=== PATIENT | female | born 1965 | race Caucasian/White ===

== ENCOUNTER 2018-06-17 06:06 | Emergency (ER) | payer OTHER, MEDICAID ==
[~2018-06-17] VITALS: Ht 172.7 cm; Wt 138.5 kg
[~2018-06-17 06:06] MED LIST: BUPR300T3 PO; CARI350T PO; CITA40TA12 PO; CLIN150C14 PO; CLON0.5T PO; DIPH25CA58 PO; FURO-69 PO; GABA600T7 PO; MORP30TA83 PO; NORE5TAB3 PO; OXYC5CAP PO; PANT40TA3 PO; PNV1TABL34 PO; TOPI25TA52 PO
--- NOTE | 2018-06-17 06:28 | PHYS DOC ---
Past History Past Medical History: Anxiety, Depression, Hypertension Past Surgical History: Other Alcohol Use: None Drug Use: None Adult General Chief Complaint Chief Complaint: LOWER EXTREMITY EDEMA HPI HPI Patient is a 52-year-old female who presents with bilateral lower extremity swelling for the past 3-4 days. This causes discomfort in the legs. She notes increased shortness of breath with climbing stairs. Denies any orthopnea, fever , nor chest pain. No relief with elevating the legs. She has a history of this several years ago and ultimately had a procedure for uterine prolapse which was felt to be obstructing venous outflow. This was performed at an outlying facility. While patient was on Lasix previously that never seemed to help this condition. Patient has not seen her primary care physician for this. Nothing seems to make the lower extremity swelling better or worse.[] Review of Systems Review of Systems Constitutional: Denies fever or chills [] Eyes: Denies change in visual acuity, redness, or eye pain [] HENT: Denies nasal congestion or sore throat [] Respiratory: Denies cough or shortness of breath [] Cardiovascular: No chest pain or palpitations[] GI: Denies abdominal pain, nausea, vomiting, bloody stools or diarrhea [] : Denies dysuria or hematuria [] Musculoskeletal: Denies back pain or joint pain, see history of present illness [] Integument: Denies rash or skin lesions [] Neurologic: Denies headache, focal weakness or sensory changes [] Endocrine: Denies polyuria or polydipsia [] All other systems were reviewed and found to be within normal limits, except as documented in this note. Allergies Allergies Allergies Coded Allergies Type Severity Reaction Last Updated Verified NSAIDS (Non-Steroidal Anti-Inflamma Allergy Intermediate HIVES 01/07/15 Yes povidone-iodine Allergy Intermediate HIVES 01/07/15 Yes tramadol Allergy Intermediate HIVES 01/07/15 Yes Physical Exam Physical Exam Constitutional: Well developed, well nourished, no acute distress, non-toxic appearance. [] HENT: Normocephalic, atraumatic, bilateral external ears normal, oropharynx moist, no oral exudates, nose normal. [] Eyes: PERRLA, EOMI, conjunctiva normal, no discharge. [] Neck: Normal range of motion, no tenderness, supple, no stridor. [] Cardiovascular:Heart rate regular rhythm, no murmur [] Lungs & Thorax: Bilateral breath sounds clear to auscultation [] Abdomen: Bowel sounds normal, soft, no tenderness, no masses, no pulsatile masses. Rectal exam performed with emergency management system director shows no external lesions. No hemorrhoids. Brown stool was obtained.[] Skin: Warm, dry, no erythema, no rash. [] Back: No tenderness, no CVA tenderness. [] Extremities: No tenderness, no cyanosis, no clubbing, ROM intact, 2-3+ pretibial edema to the knees bilaterally.[] Neurologic: Alert and oriented X 3, normal motor function, normal sensory function, no focal deficits noted. [] Psychologic: Affect normal, judgement normal, mood normal. [] Current Patient Data Vital Signs Vital Signs Date Time Temp Pulse Resp B/P (MAP) Pulse Ox O2 Delivery O2 Flow Rate FiO2 06/17/18 06:18 97.5 89 20 100 Room Air EKG EKG EKG shows a sinus rhythm at 85 bpm, normal axis, normal QTC at 453 ms, no ST elevations. Interpreted by me at 0651[] Radiology/Procedures Radiology/Procedures Portable chest, 06/17/2018: HISTORY: Lower extremity swelling, shortness of breath The heart size is within normal limits. The pulmonary vascularity is at the upper limits of normal. No pulmonary infiltrate is seen. There is no evidence of pleural fluid. IMPRESSION: No acute cardiopulmonary abnormality is detected.[] Course & Med Decision Making Course & Med Decision Making Pertinent Labs and Imaging studies reviewed. (See chart for details) ED course: Patient arrived, was placed in bed, and tolerated exam well. After the return of the low hemoglobin and hematocrit, rectal exam was performed with emergency management system director, see results above. Patient was additionally given medication for pain. With the anemia, she is noted to be Hemoccult positive. IV proton pump inhibitors were administered. Discussed her care with Dr. Emmanuel who will admit her at [facility]. Medical decision making, differential diagnoses evaluated for include DVT, CHF, cardiac dysrhythmia, anemia. Was found that she was anemic which is new compared to her previous baseline[] Dragon Disclaimer Dragon Disclaimer This electronic medical record was generated, in whole or in part, using a voice recognition dictation system. Departure Departure: Impression: Primary Impression: Peripheral edema Additional Impression: Anemia Disposition: 05 TRANSFER OTHER Admitting Physician: Beto Emmanuel Referrals: DARIUSZ HAQUE MD (PCP) Problem Qualifiers Additional Impression: Anemia Anemia type: unspecified type Qualified Codes: D64.9 - Anemia, unspecified CRISTAL ORTIZ DO Jun 17, 2018 06:28
[2018-06-17 06:44] LABS: BASO % 1 % (0-3); EOS # 0.1 x10^3/uL (0.0-0.7); EOS % 2 % (0-3); HEMATOCRIT 22.4 % (36.0-47.0); LYMPH # 1.2 x10^3/uL (1.0-4.8); LYMPH % 31 % (24-48); MEAN CORPUSCULAR HEMOGLOBIN 21 pg (25-35); MEAN CORPUSCULAR HGB CONC 30 g/dL (31-37); MEAN CORPUSCULAR VOLUME 69 fL (79-100); MONO # 0.3 x10^3/uL (0.0-1.1); MONO % 8 % (0-9); NEUT # 2.2 x10^3uL (1.8-7.7); NEUT % 58 % (31-73); PLATELET COUNT 182 x10^3/uL (140-400); RED BLOOD COUNT 3.25 x10^6/uL (3.50-5.40); RED CELL DISTRIBUTION WIDTH 17.6 % (11.5-14.5); WHITE BLOOD COUNT 3.8 x10^3/uL (4.0-11.0)
[2018-06-17 06:52] LABS: HEMOGLOBIN 6.7 g/dL (12.0-15.5)
[2018-06-17 07:02] LABS: ALBUMIN 3.5 g/dL (3.4-5.0); ALBUMIN/GLOBULIN RATIO 1.1 (1.0-1.7); CALCIUM 8.5 mg/dL (8.5-10.1); CREATININE 0.9 mg/dL (0.6-1.0); POTASSIUM 3.9 mmol/L (3.5-5.1); TOTAL BILIRUBIN 0.5 mg/dL (0.2-1.0); TOTAL PROTEIN 6.8 g/dL (6.4-8.2)
--- NOTE | 2018-06-17 07:38 | RAD ---
Portable chest, 06/17/2018: HISTORY: Lower extremity swelling, shortness of breath The heart size is within normal limits. The pulmonary vascularity is at the upper limits of normal. No pulmonary infiltrate is seen. There is no evidence of pleural fluid. IMPRESSION: No acute cardiopulmonary abnormality is detected. Electronically signed by: Robles Rudd MD (06/17/2018 7:35 AM) [facility]
[2018-06-17] MEDS ORDERED: HYDROcodone/APAP 5/325MG 1 TAB TABLET PO ONE (07:45)
[2018-06-17 08:09] LABS: PLT ESTIMATE ADEQUATE (ADEQUATE); POLYCHROMASIA PRESENT
[2018-06-17 08:10] LABS: ANISOCYTOSIS MOD; HYPOCHROMIA MOD; MICROCYTOSIS MOD; OVALOCYTES FEW; POIKILOCYTOSIS MOD; TEAR DROP CELLS OCC
[2018-06-17 08:23] LABS: FECAL OB PT POSITIVE (NEG)
--- NOTE | 2018-06-17 08:25 | RAD ---
Bilateral lower extremity venous Doppler ultrasound History: Bilateral leg swelling. Comparison: None. Procedure: Color flow Doppler, Doppler spectral analysis, and 2D images are obtained with and without compression in the area of the common femoral vein, superficial femoral vein - femoral vein junction, main femoral vein (superficial femoral vein) and popliteal vein. Veins of the proximal calf are also imaged. Findings: There is normal color flow, augmentation, and compressibility of all visualized vein segments. No evidence of deep venous thrombus is present. IMPRESSION: No evidence of right or left lower extremity deep venous thrombosis. Electronically signed by: Asa Gordon MD (06/17/2018 8:22 AM) [id number]
[2018-06-17] MEDS ORDERED: PANTOPRAZOLE IV 40 MG VIAL. ONE (08:38)
[2018-06-17] MEDS ORDERED: PROCHLORPERAZINE 10 MG/2 ML VIAL. ONE (08:38)
[2018-06-17] MEDS ORDERED: PANTOPRAZOLE IV 40 MG VIAL. IVP ONE (08:45)
[2018-06-17] MEDS ORDERED: PROCHLORPERAZINE 10 MG/2 ML VIAL. IV ONE (08:45)
--- NOTE | 2018-06-17 09:18 | EKG ---
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
[2018-06-17 09:45] VITALS: BP 122/57
== END 2018-06-17 09:45 | disposition short-term general hospital (02) ==
LOC: ER 06:06
DX: R60.0 Localized edema (principal); D64.9 Anemia, unspecified; F41.9 Anxiety disorder, unspecified; F32.9 Major depressive disorder, single episode, unspecified; I10 Essential (primary) hypertension; Z88.6 Allergy status to analgesic agent; Z88.8 Allergy status to other drugs, medicaments and biological substances
CPT/HCPCS: 36415; 71045; 80053; 82274; 83880; 84484; 85025; 85610; 93005; 93970; 96374; 96375; 99285; C9113; J0780

== ENCOUNTER 2018-09-07 15:42 | Emergency (ER) | payer OTHER, MEDICAID ==
[~2018-09-07] VITALS: Ht 172.7 cm; Wt 138.5 kg
[2018-09-07 16:07] VITALS: BP 129/90
[2018-09-07] MEDS ORDERED: CEPHALEXIN 250 MG CAPSULE PO ONE (16:15)
[2018-09-07] MEDS ORDERED: CEPH-264 PO (16:16)
--- NOTE | 2018-09-07 16:17 | PHYS DOC ---
Past History Past Medical History: Anxiety, Depression, Hypertension Past Surgical History: Other Alcohol Use: None Drug Use: None Adult General Chief Complaint Chief Complaint: LOWER EXT PAIN HPI HPI 52-year-old female presents with swelling and pain and redness to her left lower stomach. She states she was shaving her legs last night and cut her leg. She states throughout the day today the tissue surrounding the abrasion has become larger and bright red. She denies any fever chills or sweats. She states she has never had MRSA before.[] Review of Systems Review of Systems Constitutional: Denies fever or chills [] Eyes: Denies change in visual acuity, redness, or eye pain [] HENT: Denies nasal congestion or sore throat [] Respiratory: Denies cough or shortness of breath [] Cardiovascular: No additional information not addressed in HPI [] GI: Denies abdominal pain, nausea, vomiting, bloody stools or diarrhea [] : Denies dysuria or hematuria [] Musculoskeletal: Chronic lower extremity swelling[] Integument: Per history of present illness[] Neurologic: Denies headache, focal weakness or sensory changes [] Endocrine: Denies polyuria or polydipsia [] All other systems were reviewed and found to be within normal limits, except as documented in this note. Allergies Allergies Allergies Coded Allergies Type Severity Reaction Last Updated Verified NSAIDS (Non-Steroidal Anti-Inflamma Allergy Intermediate HIVES 01/07/15 Yes povidone-iodine Allergy Intermediate HIVES 01/07/15 Yes tramadol [facility] 01/07/15 Yes Physical Exam Physical Exam Constitutional: Well developed, well nourished, mild distress, non-toxic appearance. [] HENT: Normocephalic, atraumatic, bilateral external ears normal, oropharynx moist, no oral exudates, nose normal. [] Eyes: PERRLA, EOMI, conjunctiva normal, no discharge. [] Neck: Normal range of motion, no tenderness, supple, no stridor. [] Cardiovascular:Heart rate regular rhythm, no murmur [] Lungs & Thorax: Bilateral breath sounds clear to auscultation [] Abdomen: Bowel sounds normal, soft, no tenderness, no masses, no pulsatile masses. [] Skin: Warm, dry, no erythema, no rash. [] Back: No tenderness, no CVA tenderness. [] Extremities: She has significant left lower extremity cellulitis it appears most erythematous around the recent abrasion but it extends out proximally 5 cm lateral medial superior and inferior. [] Neurologic: Alert and oriented X 3, normal motor function, normal sensory function, no focal deficits noted. [] Psychologic: Affect normal, judgement normal, mood normal. [] EKG EKG [] Radiology/Procedures Radiology/Procedures [] Course & Med Decision Making Course & Med Decision Making Pertinent Labs and Imaging studies reviewed. (See chart for details) [] Dragon Disclaimer Dragon Disclaimer This electronic medical record was generated, in whole or in part, using a voice recognition dictation system. Departure Departure: Impression: Primary Impression: Cellulitis Referrals: DARIUSZ HAQUE MD (PCP) Patient Instructions: Cellulitis Additional Instructions: Return to the emergency department with any new or concerning symptoms Scripts Cephalexin (KEFLEX) 500 Mg Capsule 1 CAP PO TID for cellulitis, #30 CAP Prov: KELTON LUGO DO 09/07/18 Problem Qualifiers Primary Impression: Cellulitis Site of cellulitis: extremity Site of cellulitis of extremity: lower extremity Laterality: left Qualified Codes: L03.116 - Cellulitis of left lower limb KELTON LUGO DO Sep 07, 2018 16:17
== END 2018-09-07 16:24 | disposition home or self-care (01) ==
LOC: ER 15:42
DX: S80.812A Abrasion, left lower leg, initial encounter (principal); L03.116 Cellulitis of left lower limb; F41.9 Anxiety disorder, unspecified; F32.9 Major depressive disorder, single episode, unspecified; I10 Essential (primary) hypertension; Z88.6 Allergy status to analgesic agent; Z88.8 Allergy status to other drugs, medicaments and biological substances; W45.8XXA Other foreign body or object entering through skin, initial encounter; Y93.89 Activity, other specified; Y92.89 Other specified places as the place of occurrence of the external cause; Y99.8 Other external cause status
CPT/HCPCS: 99283

== ENCOUNTER 2018-09-17 13:57 | Inpatient (IN) | payer OTHER, MEDICAID ==
[~2018-09-17] VITALS: Ht 172.7 cm; Wt 135.2 kg
[~2018-09-17 13:57] MED LIST changes: +CEPH-264 PO
[2018-09-17] MEDS ORDERED: IV NORMAL SALINE 1,000ML 1,000 ML IV ONE (14:30)
[2018-09-17] MEDS ORDERED: ONDANSETRON PF 4 MG/2 ML VIAL. IV ONE (14:30)
[2018-09-17] MEDS ORDERED: HYDROmorphone PF 1 MG/ML DISP.SYRIN IV ONE (14:30)
--- NOTE | 2018-09-17 14:48 | PHYS DOC ---
Past History Past Medical History: Anemia, Anxiety, Depression, GERD, Other Past Surgical History: Hysterectomy, Knee Replacement, Other Alcohol Use: None Drug Use: None Adult General Chief Complaint Chief Complaint: LOWER EXT PAIN HPI HPI 52-year-old female presents with bilateral lower extremity pain. The patient was seen about a week ago while my colleague for abdominal skin cellulitis and for bilateral lower extremity cellulitis. She took all of her prescribed Keflex. She presents today because the abdomen has improved, but the bilateral lower legs have not. They continued to be more red, hot, and painful. The patient denies a fever at home. She has no new areas of concern. She admits to using inexpensive razors and causing several small cuts on both legs. She has a history of MRSA in the past. Review of Systems Review of Systems Constitutional: Denies fever or chills [] Eyes: Denies change in visual acuity, redness, or eye pain [] HENT: Denies nasal congestion or sore throat [] Respiratory: Denies cough or shortness of breath [] Cardiovascular: No additional information not addressed in HPI [] GI: Denies abdominal pain, nausea, vomiting, bloody stools or diarrhea [] : Denies dysuria or hematuria [] Musculoskeletal: Denies back pain or joint pain [] Integument: Small razor cuts on bilateral lower extremities, cellulitis[] Neurologic: Denies headache, focal weakness or sensory changes [] Endocrine: Denies polyuria or polydipsia [] All other systems were reviewed and found to be within normal limits, except as documented in this note. Current Medications Current Medications Current Medications Medications (Trade) Dose Ordered Sig/Óscar Start Time Stop Time Status Last Admin Dose Admin Hydromorphone HCl (Dilaudid) 1 mg 1X ONCE 09/17/18 14:30 09/17/18 14:36 DC Ondansetron HCl (Zofran) 4 mg 1X ONCE 09/17/18 14:30 09/17/18 14:36 DC Sodium Chloride 1,000 ml @ 1,000 mls/hr 1X ONCE 09/17/18 14:30 09/17/18 15:29 Allergies Allergies Allergies Coded Allergies Type Severity Reaction Last Updated Verified NSAIDS (Non-Steroidal Anti-Inflamma Allergy Intermediate HIVES 01/07/15 Yes povidone-iodine Allergy Intermediate HIVES 01/07/15 Yes tramadol Allergy Intermediate HIVES 01/07/15 Yes Physical Exam Physical Exam Constitutional: Well developed, well nourished, no acute distress, non-toxic appearance. [] HENT: Normocephalic, atraumatic, bilateral external ears normal, oropharynx moist, no oral exudates, nose normal. [] Eyes: PERRLA, EOMI, conjunctiva normal, no discharge. [] Neck: Normal range of motion, no tenderness, supple, no stridor. [] Cardiovascular:Heart rate regular rhythm, no murmur [] Lungs & Thorax: Bilateral breath sounds clear to auscultation [] Abdomen: Bowel sounds normal, soft, no tenderness, no masses, no pulsatile masses. [] Skin: Bilateral lower extremity with erythema, warmth, consistent with cellulitis.[] Back: No tenderness, no CVA tenderness. [] Extremities: No tenderness, no cyanosis, no clubbing, ROM intact, 4+ pitting edema lower legs. [] Neurologic: Alert and oriented X 3, normal motor function, normal sensory function, no focal deficits noted. [] Psychologic: Affect normal, judgement normal, mood normal. [] Current Patient Data Vital Signs Vital Signs Date Time Temp Pulse Resp B/P (MAP) Pulse Ox O2 Delivery O2 Flow Rate FiO2 09/17/18 14:21 98.7 85 20 98 EKG EKG [] Radiology/Procedures Radiology/Procedures [] Course & Med Decision Making Course & Med Decision Making Pertinent Labs and Imaging studies reviewed. (See chart for details) The patient has an obvious cellulitis of the bilateral lower extremities. We will give her vancomycin by IV. I discussed the patient with Dr. Emmanuel and he has accepted the patient for admission. The patient does not meet sepsis criteria. [] Dragon Disclaimer Dragon Disclaimer This electronic medical record was generated, in whole or in part, using a voice recognition dictation system. Departure Departure: Impression: Primary Impression: Cellulitis Additional Impression: Cellulitis of right lower extremity Disposition: ADMITTED INPATIENT Admitting Physician: Beto Emmanuel Condition: STABLE Referrals: DARIUSZ HAQUE MD (PCP) Problem Qualifiers Primary Impression: Cellulitis Site of cellulitis: extremity Site of cellulitis of extremity: lower extremity Laterality: right Qualified Codes: L03.115 - Cellulitis of right lower limb ESTUARDO SEVILLA DO Sep 17, 2018 14:48
[2018-09-17 15:10] LABS: BASO % 1 % (0-3); EOS # 0.2 x10^3/uL (0.0-0.7); EOS % 4 % (0-3); HEMOGLOBIN 13.1 g/dL (12.0-15.5); LYMPH # 1.6 x10^3/uL (1.0-4.8); LYMPH % 36 % (24-48); MEAN CORPUSCULAR HEMOGLOBIN 30 pg (25-35); MEAN CORPUSCULAR HGB CONC 34 g/dL (31-37); MEAN CORPUSCULAR VOLUME 88 fL (79-100); MONO # 0.3 x10^3/uL (0.0-1.1); MONO % 8 % (0-9); NEUT # 2.3 x10^3uL (1.8-7.7); NEUT % 52 % (31-73); PLATELET COUNT 187 x10^3/uL (140-400); RED BLOOD COUNT 4.44 x10^6/uL (3.50-5.40); RED CELL DISTRIBUTION WIDTH 14.1 % (11.5-14.5); WHITE BLOOD COUNT 4.4 x10^3/uL (4.0-11.0)
[2018-09-17 15:28] LABS: ALBUMIN 3.5 g/dL (3.4-5.0); ALBUMIN/GLOBULIN RATIO 0.9 (1.0-1.7); CALCIUM 9.3 mg/dL (8.5-10.1); CREATININE 0.8 mg/dL (0.6-1.0); GFR 75.6; POTASSIUM 3.9 mmol/L (3.5-5.1); TOTAL BILIRUBIN 0.4 mg/dL (0.2-1.0); TOTAL PROTEIN 7.2 g/dL (6.4-8.2)
[2018-09-17] MEDS ORDERED: VANCOMYCIN IV ONE (15:30)
[2018-09-17] MEDS ORDERED: NORMAL SALINE IV ONE (15:30)
[2018-09-17] MEDS ORDERED: VANCOMYCIN 2 GM in IV NORMAL SALINE 500ML 500 ML IV ONE (16:00)
[2018-09-17] MEDS ORDERED: ONDANSETRON PF 4 MG/2 ML VIAL. IV PRN (16:15)
[2018-09-17] MEDS: VANCOMYCIN PER PHARMACY MC PRN (16:52)
--- NOTE | 2018-09-17 16:53 | NUR ---
Pharmacy Vancomycin Dosing Note S:Consulted to monitor and dose vancomycin started . O:VERONIQUEISABELLECINDY is a 52 year old F with Cellulitis, . Height: 5 feet, 4 inches Weight: 136.945820 kg [place] Body Weight: Adjusted Body Weight: Dosing Weight: Actual Other Antibiotics: LABS: Last BUN: 12 Last Creatinine: 0.8 Creatinine Clearance: Last WBC: 4.4 Last Procalcitonin: Tmax (past 24 hours): Microbiology: I/O: Drug Levels: Last level: on at Last dose given 09/17/18 at 1700 Vancomycin Dosing: Loading Dose: 2000 mg x1 Dosing Weight: Actual Target Trough: 10-20 A: Based on: P: 1. Begin Vancomycin 2000 mg IV q12h 2. Follow up Trough level on 09/19/18 at 0430 3. Pharmacy will continue to monitor, follow and adjust therapy as needed. VINNIE FLYNN RP, 09/17/18 [id number]
[2018-09-17 16:55] VITALS: BP 148/78
[2018-09-17] MEDS ORDERED: HYDR-2769 PO (17:06)
[2018-09-17] MEDS ORDERED: FERR325T14 PO (17:06)
[2018-09-17] MEDS ORDERED: CITA20TA6 PO (17:06)
[2018-09-17] MEDS ORDERED: CYCL1DRO EACHEYE (17:06)
[2018-09-17] MEDS ORDERED: GABA300C8 PO (17:06)
[2018-09-17] MEDS ORDERED: ASCO500T2 PO (17:06)
[2018-09-17] MEDS ORDERED: DEXL30CA PO (17:06)
--- NOTE | 2018-09-17 17:32 | NUR ---
PATIENT CINDY GOULD ADMITTED FROM ED FOR CELLULITIS. PT IS ALERT AND ORIENTED X3. COMPLAINTS OF LE PAIN. ORIENTED TO ROOM. EDUCATION ABOUT DIAGNOSIS PROVIDED. WCTM.
[2018-09-17] MEDS ORDERED: clonazePAM 1 MG TABLET PO ONE (17:45)
[2018-09-17] MEDS ORDERED: BENZOCAINE 20% ORAL GEL 11.9GM TUBE. TP PRN (18:30)
[2018-09-17 19:15] VITALS: BP 136/81
[2018-09-17] MEDS: HYDROmorphone PF 1 MG/ML DISP.SYRIN IV PRN (19:38)
[2018-09-17] MEDS: cycloSPORINE 0.05% OPTH 1 DROP DROPERETTE OU SCH (20:33)
[2018-09-17] MEDS: GABAPENTIN 300 MG CAPSULE. PO SCH (20:33)
[2018-09-17] MEDS: diphenhydrAMINE HCL 25 MG CAPSULE PO PRN (20:33)
[2018-09-17] MEDS: clonazePAM 0.5 MG TABLET PO SCH (20:33)
[2018-09-18] MEDS: HYDROmorphone PF 1 MG/ML DISP.SYRIN IV PRN ×4 (00:03→13:20)
[2018-09-18] MEDS: VANCOMYCIN 2 GM in IV NORMAL SALINE 500ML 500 ML IV SCH ×2 (04:56→16:44)
[2018-09-18 05:19] VITALS: BP 124/87
[2018-09-18] MEDS: CITALOPRAM 20 MG TABLET. PO SCH (08:19)
[2018-09-18] MEDS: ASCORBIC ACID 500 MG TABLET PO SCH (08:19)
[2018-09-18] MEDS: GABAPENTIN 300 MG CAPSULE. PO SCH ×3 (08:19→20:17)
[2018-09-18] MEDS: FERROUS SULFATE 325 MG TABLET. PO SCH (08:19)
[2018-09-18] MEDS: clonazePAM 0.5 MG TABLET PO SCH ×2 (08:19→20:17)
[2018-09-18] MEDS: cycloSPORINE 0.05% OPTH 1 DROP DROPERETTE OU SCH ×2 (08:20→18:05)
[2018-09-18] MEDS: PANTOPRAZOLE 40 MG TABLET. PO SCH (08:21)
--- NOTE | 2018-09-18 13:55 | HP ---
ADMIT DATE: 09/17/2018 HISTORY OF PRESENT ILLNESS: The patient is a 52-year-old female patient who came to the Emergency Room complaining of bilateral lower extremity pain. She was seen about a week ago at the same Emergency Room with abdominal skin cellulitis and bilateral lower extremity cellulitis. She apparently completed all antibiotic that was prescribed in the form of Keflex. Apparently, the abdominal wall cellulitis resolved. However, she presented because the abdomen has improved but the bilateral lower legs have not and continues to be red, hot and painful. She said that she used cheap razor to shave her hair and probably has sustained some cuts to her skin that might have been the reason for her infection which is quite possible. She does have a history of MRSA in the past. She was evaluated in the Emergency Room and was admitted with bilateral lower extremity cellulitis and was started on IV vancomycin with the dose adjusted by the pharmacy. PAST MEDICAL HISTORY: Significant for osteoarthritis. She had a prolapsed uterus and she has also chronic back pain and she was diagnosed with severe iron deficiency anemia, was given Venofer and also was discharged home to continue on oral ferrous sulfate and ascorbic acid. She has had severe iron deficiency anemia and chronic heart pain and actually underwent a colonoscopy with biopsies and esophagogastroduodenoscopy and she was found to have grade A reflux and severe antral erosion. Antral biopsies were taken and normal at the third portion of the duodenum. PAST SURGICAL HISTORY: Significant for left total knee arthroplasty, multiple back surgeries, hysterectomy and bilateral salpingo-oophorectomy, left eye laser surgery, colonoscopy because she was bleeding according to her. She has also bilateral rotator cuff tear, has history of acute kidney injury before. ALLERGIES: SHE IS ALLERGIC TO BETADINE, TRAMADOL AND ALL NONSTEROIDAL ANTI-INFLAMMATORY MEDICATION. FAMILY HISTORY: Significant for one brother who at the age of 54 because of myocardial infarction. She has 2 other brothers. One she does not really know much about him and the other is healthy. She has two sisters, one older and one younger, both healthy. Her father at age of 52 because of myocardial infarction and mother committed suicide at the age of 66. SOCIAL HISTORY: She is from her now more than 4 years. She has 2 sons and 1 daughter. She quit smoking 25 years ago. Does not drink alcohol or do recreational drugs and she is currently on disability. PHYSICAL EXAMINATION: GENERAL: On arrival to the Emergency Room, she looked well and was clearly in no apparent respiratory distress. No pallor, jaundice, cyanosis, or thyromegaly. No jugular venous distension. No limb edema. VITAL SIGNS: Her heart rate was 87, blood pressure 148/78, temperature 97.1, respiratory rate was 18 and oxygen saturation was 96%. HEENT: Normocephalic, atraumatic. NECK: Supple. HEART: Showed normal first and second heart sounds with no gallop, rub or murmur. CHEST: Clear to auscultation. No crepitation or rhonchi. ABDOMEN: Distended, soft, nontender. No guarding or rigidity. No organomegaly. Hernial orifice intact. Bowel sounds normal. NEUROLOGIC: She is awake, alert, responding appropriately. Cranial nerves intact. EXTREMITIES: She moves her extremities without difficulty. She definitely has bilateral lower extremity cellulitis with marked erythema and tenderness. LABORATORY DATA: Her white cell count 4400, hemoglobin 13, hematocrit 39, MCV 88 and platelet count 187,000. Chemistry showed a serum sodium 142, potassium 3.9, chloride 103, bicarbonate 30, anion gap of 9, BUN 12, creatinine 0.8, estimated GFR was 76 mL per minute. Her glucose 129, calcium was 9.3. Total bilirubin, AST, ALT, alkaline phosphatase were normal. Her total protein 7.2, albumin 3.5. ASSESSMENT AND PLAN: In summary, this is a 52-year-old female patient who was admitted with bilateral lower extremity cellulitis and she was started on IV vancomycin. We will continue all her home medication. We will monitor her closely and hopefully eventually will discharge her home to continue on some form of oral antibiotics, perhaps doxycycline and/or sulfa drug. ADI THRASHER MD DR: SUSAN/martha JOB#: [id number] / [id number]
[2018-09-18] MEDS: diphenhydrAMINE HCL 25 MG CAPSULE PO PRN (16:34)
[2018-09-18] MEDS: HYDROcodone/APAP 5/325MG 1 TAB TABLET PO PRN ×2 (17:15→17:24)
[2018-09-18 19:22] VITALS: BP 105/63
[2018-09-18] MEDS: LACTOBACILLUS RHAMNOSUS GG 1 CAPSULE. PO SCH (20:17)
[2018-09-18] MEDS: HYDROcodone/APAP 10/325 1 TAB TABLET PO PRN (23:08)
[2018-09-19] MEDS: diphenhydrAMINE HCL 25 MG CAPSULE PO PRN ×2 (04:06→20:52)
[2018-09-19] MEDS: HYDROcodone/APAP 10/325 1 TAB TABLET PO PRN ×4 (04:32→19:38)
[2018-09-19 05:21] LABS: VANC TR 10.2 mcg/mL (10.0-20.0)
[2018-09-19] MEDS: VANCOMYCIN 2 GM in IV NORMAL SALINE 500ML 500 ML IV SCH ×2 (05:57→16:51)
[2018-09-19 06:47] VITALS: BP 90/57
[2018-09-19] MEDS: VANCOMYCIN PER PHARMACY MC PRN (07:36)
--- NOTE | 2018-09-19 07:36 | NUR ---
Pharmacy Vancomycin Dosing Note S:Consulted to monitor and dose vancomycin started 09/17/18. O:CINDY GOULD is a 52 year old F with Cellulitis Height: 5 feet, 4 inches Weight: 136.708431 kg [place] Body Weight: 54.70 Adjusted Body Weight: 87.22 Dosing Weight: Actual Other Antibiotics: NONE LABS: Last BUN: 12 Last Creatinine: 0.8 Creatinine Clearance: 115 Last WBC: 4.4 Drug Levels: Last Trough level: 10.2 on 09/19/18 at 0430 Last dose given 09/18/18 at 1700 Vancomycin Dosing: Loading Dose: 2000 mg x1 Dosing Weight: Actual Target Trough: 10-20 A: Based on today's trough of 10.2, we will continue vanco and the same dose and frequency. P: 1. Continue Vancomycin 2000 mg IV q12h 2. Follow up Trough level in 5-7 days or as indicated. 3. Pharmacy will continue to monitor, follow and adjust therapy as needed. CANDY MORALES [facility] 09/19/18 0710
[2018-09-19] MEDS: LACTOBACILLUS RHAMNOSUS GG 1 CAPSULE. PO SCH ×2 (08:40→20:52)
[2018-09-19] MEDS: GABAPENTIN 300 MG CAPSULE. PO SCH ×3 (08:40→20:52)
[2018-09-19] MEDS: CITALOPRAM 20 MG TABLET. PO SCH (08:40)
[2018-09-19] MEDS: PANTOPRAZOLE 40 MG TABLET. PO SCH (08:40)
[2018-09-19] MEDS: FERROUS SULFATE 325 MG TABLET. PO SCH (08:40)
[2018-09-19] MEDS: clonazePAM 0.5 MG TABLET PO SCH ×2 (08:40→20:52)
[2018-09-19] MEDS: cycloSPORINE 0.05% OPTH 1 DROP DROPERETTE OU SCH ×2 (08:40→20:52)
[2018-09-19] MEDS: ASCORBIC ACID 500 MG TABLET PO SCH (08:40)
[2018-09-19 16:18] VITALS: BP 136/67
[2018-09-19 16:34] VITALS: BP 136/67
--- NOTE | 2018-09-19 17:33 | NUR ---
Patient transferred to room 119 from ICU. Call light within reach. [facility]
[2018-09-19 17:45] VITALS: BP 155/78
[2018-09-20] MEDS: HYDROcodone/APAP 10/325 1 TAB TABLET PO PRN ×4 (00:09→13:00)
[2018-09-20] MEDS: diphenhydrAMINE HCL 25 MG CAPSULE PO PRN (04:23)
[2018-09-20] MEDS: VANCOMYCIN 2 GM in IV NORMAL SALINE 500ML 500 ML IV SCH (04:24)
[2018-09-20 05:05] VITALS: BP 100/63
[2018-09-20 06:44] LABS: HEMATOCRIT 36.2 % (36.0-47.0); HEMOGLOBIN 12.1 g/dL (12.0-15.5); RED BLOOD COUNT 4.11 x10^6/uL (3.50-5.40); RED CELL DISTRIBUTION WIDTH 14.1 % (11.5-14.5); WHITE BLOOD COUNT 2.6 x10^3/uL (4.0-11.0)
[2018-09-20 07:05] LABS: ALBUMIN 2.9 g/dL (3.4-5.0); ALBUMIN/GLOBULIN RATIO 0.9 (1.0-1.7); C REACTIVE PROTEIN 15.6 mg/L (0-3.3); CALCIUM 8.7 mg/dL (8.5-10.1); CREATININE 0.8 mg/dL (0.6-1.0); GFR 75.6; POTASSIUM 3.8 mmol/L (3.5-5.1); TOTAL BILIRUBIN 0.3 mg/dL (0.2-1.0); TOTAL PROTEIN 6.2 g/dL (6.4-8.2)
[2018-09-20] MEDS: PANTOPRAZOLE 40 MG TABLET. PO SCH (08:19)
[2018-09-20] MEDS: FERROUS SULFATE 325 MG TABLET. PO SCH (08:19)
[2018-09-20] MEDS: cycloSPORINE 0.05% OPTH 1 DROP DROPERETTE OU SCH (08:19)
[2018-09-20] MEDS: ASCORBIC ACID 500 MG TABLET PO SCH (08:19)
[2018-09-20] MEDS: clonazePAM 0.5 MG TABLET PO SCH (08:19)
[2018-09-20] MEDS: GABAPENTIN 300 MG CAPSULE. PO SCH ×2 (08:19→13:00)
[2018-09-20] MEDS: CITALOPRAM 20 MG TABLET. PO SCH (08:20)
[2018-09-20] MEDS: LACTOBACILLUS RHAMNOSUS GG 1 CAPSULE. PO SCH (08:20)
[2018-09-20 10:44] VITALS: BP 127/74
--- NOTE | 2018-09-20 13:21 | PN ---
DATE: SUBJECTIVE: The patient is sitting up in her bed, in no apparent distress. Her redness, swelling is slowly subsiding. Continues to complain of pain. I have increased hydrocodone to 10/325 every 4 hours. So far, she has no fever. Her white cell count is normal. Her culture and sensitivity are still pending. OBJECTIVE: GENERAL: When I am examining her, she looked well and was clearly in no apparent respiratory distress. No pallor, jaundice, cyanosis or thyromegaly. No jugular venous distension. No limb edema. VITAL SIGNS: Her heart rate was 86, blood pressure 136/81, temperature was 97.9, respiratory rate was 18 and oxygen saturation was 96% on room air. HEAD, EYES, EARS, NOSE AND THROAT: Showed normocephalic, atraumatic. NECK: Supple. HEART: Showed normal first and second heart sounds with no gallop, rub or murmur. CHEST: Clear to auscultation. No crepitation or rhonchi. ABDOMEN: Distended, soft, nontender. NEUROLOGIC: She is awake, alert, responding appropriately. All cranial nerves intact. She moves extremities without difficulty. Most of the erythema is subsiding. Her intake and output are incompletely recorded. ASSESSMENT AND PLAN: Bilateral lower extremity cellulitis for which she is now on IV vancomycin. Continue with the Protonix. Continue with ferrous sulfate and ascorbic acid. Continue with gabapentin and repeat her labs tomorrow and hopefully discharge her to continue on oral antibiotics. ADI THRASHER MD DR: SUSAN/martha JOB#: [id number] / [id number]
[2018-09-20 14:48] VITALS: BP 120/72
[2018-09-20] MEDS ORDERED: SULF1TAB24 PO (14:54)
--- NOTE | 2018-09-20 16:25 | NUR ---
NSG NOTE; DISCHARGE VERBAL AND WRITTEN DISCHARGE INSTRUCTIONS GIVEN TO PT WITH VERBAL UNDERSTANDING WRITTEN RX GIVEN TO PT DISCHARGE TO HOME AT 1624 VIA W/C ACCOMP BY CAMPUS SECURITY OFFICER
--- NOTE | 2018-09-21 02:59 | DS ---
DATE OF DISCHARGE: 09/20/2018 HOSPITAL COURSE: The patient is a 52-year-old female patient who was admitted with cellulitis, mainly her right lower extremity, but this extended to the left lower extremity. She was started on IV vancomycin and her redness and inflammation has largely subsided. She remained afebrile, hemodynamically stable. Decision was made to discharge her home to continue on oral Bactrim to finish the course of treatment. PHYSICAL EXAMINATION: GENERAL: When I examined her this afternoon, she was resting flat, comfortably in bed, in no apparent respiratory distress. No pallor, jaundice, cyanosis, or thyromegaly. No jugular venous distension. No lower limb edema. VITAL SIGNS: Her heart rate is 79, blood pressure is 127/74, temperature was 97.9, respiratory rate 20, and oxygen saturation was 93%. HEAD, EYES, EARS, NOSE AND THROAT: Normocephalic, atraumatic. NECK: Supple. HEART: Showed normal first and second sounds. No gallop, rub or murmur. CHEST: Clear to auscultation. No crepitation or rhonchi. ABDOMEN: Distended, soft, nontender. NEUROLOGICAL: She is awake, alert, responding appropriately. All cranial nerves intact. She moves extremities without difficulty. She ambulates without assistance or assistive devices. EXTREMITIES: Examination of both lower extremities showed the redness is fading away, although has not resolved completely. Her intake over the last 24 hours was 1800, no output was recorded. LABORATORY DATA: Her lab work this morning showed white cell count down to 2600, hemoglobin 12, hematocrit 36, MCV 88 and platelet count of 134,000. Her serum sodium was 142, potassium 3.8, chloride 107, bicarbonate 30, anion gap of 5, BUN 12, creatinine 0.8, estimated GFR was 76 mL per minute. Her glucose 187, calcium was 8.7. Total bilirubin, ____ alkaline phosphatase were normal. Her C-reactive protein was 15.6. Total protein was 6.2, albumin was 2.9. Her sedimentation rate was 15 mm. Toxic screen showed vancomycin trough level was within normal limits. Her nasal screen for MRSA PCR was negative. DISCHARGE MEDICATIONS: She was discharged home to continue on sulfamethoxazole/trimethoprim 1 tablet p.o. b.i.d. for 7 days, ascorbic acid 500 mg once a day, citalopram hydrobromide 20 mg daily, clonazepam 0.5 mg twice a day, cyclosporine for Restasis 1 drop to both eyes twice a day, Dexilant 30 mg daily, diphenhydramine for Benadryl 25 mg for itching, ferrous sulfate 325 mg daily, gabapentin 300 mg 3 times a day, hydrocodone/APAP 10/325 one tablet every 6 hours. FINAL DISCHARGE DIAGNOSES: 1. Bilateral lower extremity cellulitis, resolving. 2. The patient has generalized osteoarthritis status post left total knee arthroplasty, chronic back pain, iron deficiency anemia that has resolved. ADI THRASHER MD DR: SUSAN/martha JOB#: [id number] / [id number]
== END 2018-09-20 16:23 | disposition home or self-care (01) | DRG 603 ==
LOC: ER 13:57 → ICU 16:23 → 1 SOUTH 09-19 17:14
PROVIDERS: ADMIT Internal Medicine; ATTEND Internal Medicine
DX: L03.115 Cellulitis of right lower limb (principal); L03.116 Cellulitis of left lower limb; K21.9 Gastro-esophageal reflux disease without esophagitis; M15.9 Polyosteoarthritis, unspecified; Z96.652 Presence of left artificial knee joint; D50.9 Iron deficiency anemia, unspecified; F41.9 Anxiety disorder, unspecified; G89.29 Other chronic pain; F32.9 Major depressive disorder, single episode, unspecified; Z90.710 Acquired absence of both cervix and uterus; Z87.891 Personal history of nicotine dependence; Z86.14 Personal history of Methicillin resistant Staphylococcus aureus infection; Z88.6 Allergy status to analgesic agent; Z88.3 Allergy status to other anti-infective agents; Z82.49 Family history of ischemic heart disease and other diseases of the circulatory system
CPT/HCPCS: 36415; 80053; 80202; 83880; 85025; 85027; 85651; 86140; 87040; 87641; 96361; 96374; 96375; J1170; J2405; J3370; J7040; Q0163; 99285-25; J7030

== ENCOUNTER 2019-04-06 09:49 | Emergency (ER) | payer OTHER, MEDICAID ==
[~2019-04-06] VITALS: Ht 172.7 cm; Wt 136.0 kg
[~2019-04-06 09:49] MED LIST changes: +ASCO500T2 PO; +CITA20TA6 PO; +CYCL1DRO EACHEYE; +DEXL30CA PO; +FERR325T14 PO; +GABA300C8 PO; +HYDR-2769 PO; +SULF1TAB24 PO
[2019-04-06] MEDS ORDERED: DICYCLOMINE HCL 20 MG TABLET PO ONE (10:15)
[2019-04-06] MEDS ORDERED: ONDANSETRON PF 4 MG/2 ML VIAL. IV ONE (10:15)
[2019-04-06] MEDS ORDERED: IV NORMAL SALINE 1,000ML 1,000 ML IV ONE (10:15)
[2019-04-06 10:41] LABS: BASO % 0 % (0-3); EOS % 1 % (0-3); HEMATOCRIT 43.8 % (36.0-47.0); HEMOGLOBIN 14.8 g/dL (12.0-15.5); LYMPH # 0.4 x10^3/uL (1.0-4.8); LYMPH % 7 % (24-48); MEAN CORPUSCULAR HEMOGLOBIN 32 pg (25-35); MEAN CORPUSCULAR HGB CONC 34 g/dL (31-37); MEAN CORPUSCULAR VOLUME 93 fL (79-100); MONO # 0.3 x10^3/uL (0.0-1.1); MONO % 6 % (0-9); NEUT # 4.8 x10^3uL (1.8-7.7); NEUT % 86 % (31-73); PLATELET COUNT 152 x10^3/uL (140-400); RED CELL DISTRIBUTION WIDTH 12.6 % (11.5-14.5); WHITE BLOOD COUNT 5.6 x10^3/uL (4.0-11.0)
[2019-04-06 10:52] LABS: BILIRUBIN,URINE NEG (NEG); CLARITY,URINE CLEAR; COLOR,URINE YELLOW
[2019-04-06 10:52] LABS: CALCIUM 8.2 mg/dL (8.5-10.1); CREATININE 0.9 mg/dL (0.6-1.0); GFR 65.8
[2019-04-06 10:53] LABS: GLUCOSE,URINE NEG (NEG); NITRITE,URINE NEG (NEG)
[2019-04-06 10:58] LABS: ALBUMIN 3.4 g/dL (3.4-5.0); TOTAL BILIRUBIN 0.7 mg/dL (0.2-1.0); TOTAL PROTEIN 6.9 g/dL (6.4-8.2)
[2019-04-06] MEDS ORDERED: ONDA4TAB12 PO (11:06)
--- NOTE | 2019-04-06 11:11 | PHYS DOC ---
Past History Past Medical History: Anemia, Anxiety, Depression, GERD, Other Past Surgical History: Hysterectomy, Knee Replacement, Other Additional Past Surgical Histo: back surgeries Alcohol Use: None Drug Use: None Adult General Chief Complaint Chief Complaint: NAUSEA/VOMITING/DIARRHEA HPI HPI Patient is a 53-year-old female presenting with nausea vomiting and diarrhea apparently she's had 4 more episodes of each having some just nausea sort of intermittent crampy pain in her abdomen currently getting a little bit better. She lost her mother earlier this week symptoms have been more difficult to control because of that. She does take chronic pain medication as well symptoms started yesterday Review of Systems Review of Systems Constitutional: Denies fever or chills [] Eyes: Denies change in visual acuity, redness, or eye pain [] HENT: Denies nasal congestion or sore throat [] Respiratory: Denies cough or shortness of breath [] Cardiovascular: Integument: Denies rash or skin lesions [] Neurologic: Denies headache, focal weakness or sensory changes [] Endocrine: Denies polyuria or polydipsia [] All other systems were reviewed and found to be within normal limits, except as documented in this note. Current Medications Current Medications Current Medications Medications (Trade) Dose Ordered Sig/Óscar Start Time Stop Time Status Last Admin Dose Admin Dicyclomine HCl (Bentyl) 20 mg 1X ONCE 04/06/19 10:15 04/06/19 10:16 DC 04/06/19 10:35 20 MG Ondansetron HCl (Zofran) 4 mg 1X ONCE 04/06/19 10:15 04/06/19 10:16 DC 04/06/19 10:35 4 MG Sodium Chloride 1,000 ml @ 1,000 mls/hr 1X ONCE 04/06/19 10:15 04/06/19 11:14 04/06/19 10:35 1,000 MLS/HR Allergies Allergies Allergies Coded Allergies Type Severity Reaction Last Updated Verified NSAIDS (Non-Steroidal Anti-Inflamma Allergy Intermediate HIVES 01/07/15 Yes povidone-iodine Allergy Intermediate HIVES 01/07/15 Yes tramadol Allergy Intermediate HIVES 01/07/15 Yes Physical Exam Physical Exam Constitutional: Well developed, well nourished, no acute distress, non-toxic appearance. [] HENT: Normocephalic, atraumatic, bilateral external ears normal, oropharynx dry, no oral exudates, nose normal. [] Eyes: PERRLA, EOMI, conjunctiva normal, no discharge. [] Neck: Normal range of motion, no tenderness, supple, no stridor. [] Cardiovascular:Heart rate regular rhythm, no murmur [] Lungs & Thorax: Bilateral breath sounds clear to auscultation [] Abdomen: Bowel sounds normal, soft, no tenderness, no masses, no pulsatile masses. [] Skin: Warm, dry, no erythema, no rash. [] Back: No tenderness, no CVA tenderness. [] Extremities: No tenderness, no cyanosis, no clubbing, ROM intact, no edema. [] Neurologic: Alert and oriented X 3, normal motor function, normal sensory function, no focal deficits noted. [] Psychologic: Affect normal, judgement normal, mood normal. [] Current Patient Data Vital Signs Vital Signs Date Time Temp Pulse Resp B/P (MAP) Pulse Ox O2 Delivery O2 Flow Rate FiO2 04/06/19 10:30 89 16 115/61 (79) 93 Room Air 04/06/19 10:04 98.0 Lab Results Laboratory Tests Test 04/06/19 10:10 04/06/19 10:28 Urine Collection Type Unknown Urine Color Yellow Urine Clarity Clear Urine pH 6.0 Urine Specific Rosine >=1.030 Urine Protein Trace (NEG-TRACE) Urine Glucose (UA) Neg mg/dL (NEG) Urine Ketones (Stick) Neg mg/dL (NEG) Urine Blood Neg (NEG) Urine Nitrite Neg (NEG) Urine Bilirubin Neg (NEG) Urine Urobilinogen Dipstick 1.0 mg/dL (0.2 mg/dL) Urine Leukocyte Esterase Neg (NEG) White Blood Count 5.6 x10^3/uL (4.0-11.0) Red Blood Count 4.70 x10^6/uL (3.50-5.40) Hemoglobin 14.8 g/dL (12.0-15.5) Hematocrit 43.8 % (36.0-47.0) Mean Corpuscular Volume 93 fL (79-100) Mean Corpuscular Hemoglobin 32 pg (25-35) Mean Corpuscular Hemoglobin Concent 34 g/dL (31-37) Red Cell Distribution Width 12.6 % (11.5-14.5) Platelet Count 152 x10^3/uL (140-400) Neutrophils (%) (Auto) 86 % (31-73) H Lymphocytes (%) (Auto) 7 % (24-48) L Monocytes (%) (Auto) 6 % (0-9) Eosinophils (%) (Auto) 1 % (0-3) Basophils (%) (Auto) 0 % (0-3) Neutrophils # (Auto) 4.8 x10^3uL (1.8-7.7) Lymphocytes # (Auto) 0.4 x10^3/uL (1.0-4.8) L Monocytes # (Auto) 0.3 x10^3/uL (0.0-1.1) Eosinophils # (Auto) 0.0 x10^3/uL (0.0-0.7) Basophils # (Auto) 0.0 x10^3/uL (0.0-0.2) Sodium Level 140 mmol/L (136-145) Potassium Level 4.0 mmol/L (3.5-5.1) Chloride Level 103 mmol/L (98-107) Carbon Dioxide Level 27 mmol/L (21-32) Anion Gap 10 (6-14) Blood Urea Nitrogen 19 mg/dL (7-20) Creatinine 0.9 mg/dL (0.6-1.0) Estimated GFR (Cockcroft-Gault) 65.8 BUN/Creatinine Ratio 21 (6-20) H Glucose Level 158 mg/dL (70-99) H Calcium Level 8.2 mg/dL (8.5-10.1) L Total Bilirubin 0.7 mg/dL (0.2-1.0) Aspartate Amino Transferase (AST) 19 U/L (15-37) Alanine Aminotransferase (ALT) 29 U/L (14-59) Alkaline Phosphatase 67 U/L (46-116) Total Protein 6.9 g/dL (6.4-8.2) Albumin 3.4 g/dL (3.4-5.0) Albumin/Globulin Ratio 1.0 (1.0-1.7) Lipase 121 U/L (73-393) EKG EKG [] Radiology/Procedures Radiology/Procedures [] Course & Med Decision Making Course & Med Decision Making Pertinent Labs and Imaging studies reviewed. (See chart for details) []Patient was improved in the emergency room following IV fluids Janelfran and Bentyl on reevaluation at 11:10 AM she said that her stomach but calmed down she really was not that nausea was not having any pain at this time. Patient was discharged with a perception for Zofran return precautions were discussed and she voiced understanding of instructions Dragon Disclaimer Dragon Disclaimer This electronic medical record was generated, in whole or in part, using a voice recognition dictation system. Departure Departure: Impression: Primary Impression: Nausea vomiting and diarrhea Disposition: HOME, SELF-CARE Condition: STABLE Patient Instructions: Nausea and Vomiting, [id number] Scripts Ondansetron (ONDANSETRON ODT) 4 Mg Tab.rapdis 1 TAB PO PRN Q6-8HRS PRN for NAUSEA/VOMITING, #16 TAB Prov: KIESHA BE MD 04/06/19 KIESHA BE MD Apr 06, 2019 11:11
[2019-04-06 11:45] VITALS: BP 117/60
== END 2019-04-06 11:49 | disposition home or self-care (01) ==
LOC: EDBD → UNMERGE 09:49 → ER 09:49 → MERGE 09:49 → ER 11:49
DX: R11.2 Nausea with vomiting, unspecified (principal); R19.7 Diarrhea, unspecified; R10.9 Unspecified abdominal pain; F41.9 Anxiety disorder, unspecified; F32.9 Major depressive disorder, single episode, unspecified; K21.9 Gastro-esophageal reflux disease without esophagitis; Z86.2 Personal history of diseases of the blood and blood-forming organs and certain disorders involving the immune mechanism; Z90.710 Acquired absence of both cervix and uterus; Z88.6 Allergy status to analgesic agent; Z88.8 Allergy status to other drugs, medicaments and biological substances
CPT/HCPCS: 36415; 80053; 81003; 83690; 85025; 96361; 96374; 99284; J2405; J7030

== ENCOUNTER 2019-04-09 14:53 | Emergency (ER) | payer SELFPAY ==
[~2019-04-09] VITALS: Ht 172.7 cm; Wt 143.0 kg
[~2019-04-09 14:53] MED LIST changes: +ONDA4TAB12 PO
[2019-04-09] MEDS ORDERED: NOREPINEPHRINE BITARTRATE 4 MG/4 ML VIAL. IV ONE ×2 (15:01→15:20)
[2019-04-09] MEDS ORDERED: IV DEXTROSE 5% 250 ML IV ONE (15:04)
[2019-04-09] MEDS ORDERED: IV NORMAL SALINE 1,000ML 1,000 ML IV ONE (15:15)
[2019-04-09] MEDS ORDERED: NOREPINEPHRINE BITARTRATE 8 MG in IV DEXTROSE 5% 250 ML IV PRN ×2 (15:15→18:15)
[2019-04-09] MEDS ORDERED: PROPOFOL 10,000 MCG/ML (100ML) VIAL IV ONE (15:20)
[2019-04-09] MEDS ORDERED: SODIUM BICARB ADULT 8.4% 50 MEQ/50 ML DISP.SYRIN. ONE (15:20)
[2019-04-09] MEDS ORDERED: EPINEPHrine SYRINGE 1 MG/10 ML SYRINGE ONE (15:20)
[2019-04-09] MEDS ORDERED: IV DEXTROSE 5% 250 ML BAG. IV ONE (15:20)
[2019-04-09] MEDS ORDERED: PROPOFOL 100 ML IV ONE (15:28)
[2019-04-09 15:32] LABS: BASO % 0 % (0-3); EOS % 0 % (0-3); HEMATOCRIT 38.5 % (36.0-47.0); HEMOGLOBIN 11.9 g/dL (12.0-15.5); LYMPH # 2.4 x10^3/uL (1.0-4.8); LYMPH % 18 % (24-48); MEAN CORPUSCULAR HEMOGLOBIN 32 pg (25-35); MEAN CORPUSCULAR HGB CONC 31 g/dL (31-37); MEAN CORPUSCULAR VOLUME 103 fL (79-100); MONO # 0.5 x10^3/uL (0.0-1.1); MONO % 4 % (0-9); NEUT # 10.5 x10^3uL (1.8-7.7); NEUT % 78 % (31-73); PLATELET COUNT 181 x10^3/uL (140-400); RED BLOOD COUNT 3.75 x10^6/uL (3.50-5.40); RED CELL DISTRIBUTION WIDTH 13.5 % (11.5-14.5); WHITE BLOOD COUNT 13.6 x10^3/uL (4.0-11.0)
[2019-04-09 15:35] LABS: BACTERIA,URINE 0 /HPF (0-FEW); BILIRUBIN,URINE NEG (NEG); CLARITY,URINE HAZY; COLOR,URINE AMBER; GLUCOSE,URINE NEG (NEG); HYALINE CASTS, URINE FEW /HPF; NITRITE,URINE NEG (NEG); RBC,URINE RARE /HPF (0-2); SQUAMOUS EPITHELIAL CELL,UR FEW /LPF; UROBILINOGEN,URINE 0.2 mg/dL (0.2 mg/dL); WBC,URINE 0 /HPF (0-4)
--- NOTE | 2019-04-09 15:37 | PHYS DOC ---
Adult General Chief Complaint Chief Complaint: CPR/FULL ARREST HPI HPI Patient is a 51 yo f biba cardiac arrest Apparently she is living in the [facility] long-term initial past medical history is unknown. Sister went out to smoke a cigarette when she came back the patient was not breathing. This was approximately 15 minutes with a primary x-ray performed CPR the patient was pulseless for 20-25 minutes they gave her 5 of epi and 8 of Narcan in to get a pulse back for 5 minutes after 8 mg of Narcan they did not see any drug or if not on scene. Blood sugar was over 300. History limited by acuity 3:30 PM later on I did talk to the patient's son who called here and I noted from him the patient is on benzodiazepines as well as hydrocodone should he says she does take it normally regularly without abusing and he thinks Review of Systems Review of Systems unable to due to acuity of illness. Current Medications Current Medications Current Medications Medications (Trade) Dose Ordered Sig/Óscar Start Time Stop Time Status Last Admin Dose Admin Ceftriaxone Sodium 1 gm/ Sodium Chloride 50 ml @ 100 mls/hr 1X ONCE 04/09/19 15:15 04/09/19 15:44 Dextrose 250 ml @ As Directed STK-MED ONCE 04/09/19 15:04 04/09/19 15:04 DC Fentanyl Citrate (Fentanyl 2ml Vial) 50 mcg 1X ONCE 04/09/19 15:15 04/09/19 15:29 DC 04/09/19 15:15 50 MCG Norepinephrine Bitartrate (Levophed) 4 mg STK-MED ONCE 04/09/19 15:01 04/09/19 15:02 DC Norepinephrine Bitartrate 8 mg/ Dextrose 258 ml @ 33.863 mls/ hr CONT PRN 04/09/19 15:15 Propofol 100 ml @ As Directed STK-MED ONCE 04/09/19 15:28 04/09/19 15:29 DC Sodium Chloride 1,000 ml @ 1,000 mls/hr 1X ONCE 04/09/19 15:15 04/09/19 16:14 Allergies Allergies Allergies Coded Allergies Type Severity Reaction Last Updated Verified Unable to Assess 04/09/19 No Physical Exam Physical Exam Patient is obese and obtunded and pulseless on arrival with CPR in progress. HENT: Normocephalic, atraumatic, bilateral external ears normal, oropharynx moist, no oral exudates, nose normal. [] Eyes: Pupils are 5 mm and they are slightly reactive to light Neck: Normal range of motion, no tenderness, supple, no stridor. [] Patient is not breathing on her own coarse breath sounds bilaterally Abdomen distended obese not rigid. Skin: Warm, dry, no erythema, initially was cyanotic Extremities: No tenderness, no cyanosis, no clubbing, ROM intact, no edema. [] Neurologic: Jeronimo coma scale 3. Current Patient Data Lab Results Laboratory Tests Test 04/09/19 15:21 Glucose (Fingerstick) 444 mg/dL (70-99) H EKG EKG [] Radiology/Procedures Radiology/Procedures []IMPRESSION: 1. Patchy perihilar airspace disease, likely atelectasis. 2. Endotracheal tube tip at mid trachea. Electronically signed by: Aldo Covarrubias MD (04/09/2019 3:37 PM) [facility] DICTATED AND SIGNED BY: ALDO COVARRUBIAS MD DATE: 04/09/19 153 CC: KIESHA BE MD; PCP,UNKNOWN ~ Impressions: Patient has an endotracheal tube to 7 years above the lakshmi by my view there may be some left sided opacity. There is a widened mediastinum this is probably related to positioning Course & Med Decision Making Course & Med Decision Making Pertinent Labs and Imaging studies reviewed. (See chart for details) []51-year-old female brought in by ambulance cardiac arrest in the emergency room we did get a pulse back within about 5 minutes. Critical care time was 75 minutes exclusive of procedures. Indication: cardiac arrest Consent: emergent Procedure: The patient was positioned appropriately and the skin over the [right femoral vein, chlorhexidine prep Local anesthesia was none]. A large bore needle was used to identify the vein. A guide wire was then inserted into the vein through the needle. A triple lumen was then inserted into the vessel over the guide wire using the Seldinger technique. All ports showed good, free flowing blood return and were flushed with saline solution. The catheter was then securely fastened to the skin [with sutures] and covered with a sterile dressing. Complications: None Post code differential would include oversedation given the history that I obtained from the patient's son EKG post code EKG showed irregular rhythm rate of 128 no STEMI was identified QRS is 112 interpreted by me the time of encounter. We gave bicarbonate we started Levaquin drip blood pressure did go up or trendin g titrating up to a good range. We are starting a low-dose propofol patient is occasionally overbreathing the vent. I did speak with Dr. encinas was accepting the patient [place]. We talked about a CT scan to evaluate for PE. The blood pressure has remained very stable in the emergency room in the 150 systolic range with a very small amount of Levophed oxygenation is adequate unfortunately creatinine is up to 2.[address] of the chest for now. I did order a CT head and a noncontrast abdomen and pelvis to evaluate post code those will be done just prior to transfer. I did also speak with Dr. Munson from cardiology at around 4:10 PM he is aware of the patient. Transfer. Additional history was obtained from the patient's son who did say that she takes hydrocodone as well as benzodiazepine. Drug screen supports this perhaps there was a hypoxic event of some kind. Patient was given a dose of IV ceftriaxone in the emergency room, as well as ideal body weight fluids due to the patient's BMI greater than 30. Noted a lactic acid I think that this is more likely to the post CODE STATUS rather than true septic shock at the blood pressure is been actually fairly elevated nevertheless we did treat lactic acid can be repeated at [place]. Noted the blood test that's a respiratory and metabolic acidosis with inadequate compensation. We have increased the rate up to 20 on the vent after seeing the gas. Noted the elevated blood sugar, patient was hydrated aggressively this can be rechecked at this point time transfer is here we will wait on any insulin for now. Troponin likely related to strain from the cardiac arrest and prolonged CPR. Dragon Disclaimer Dragon Disclaimer This electronic medical record was generated, in whole or in part, using a voice recognition dictation system. Departure Departure: Impression: Primary Impression: Cardiac arrest Disposition: 02 XFER SHT-TRM HOSP Condition: CRITICAL Referrals: PCP,UNKNOWN (PCP) KIESHA BE MD Apr 09, 2019 15:37
[2019-04-09 15:39] LABS: ACETAMIN 3.3 mcg/mL (10-30); ETHANOL < 10 mg/dL (0-10); SALIC 1.9 mg/dL (2.8-20.0)
--- NOTE | 2019-04-09 15:40 | RAD ---
Single view chest dated 04/09/2019. No comparison available. CLINICAL INDICATION: Post code. FINDINGS: Single supine portable exam performed. ET tube tip approximately 4.5 cm above the level the lakshmi. Heart size within normal limits. Elevation of right hemidiaphragm. There is mild patchy perihilar opacity. No consolidation or pleural effusion. No apparent pneumothorax. IMPRESSION: 1. Patchy perihilar airspace disease, likely atelectasis. 2. Endotracheal tube tip at mid trachea. Electronically signed by: Aldo Covarrubias MD (04/09/2019 3:37 PM) [facility]
[2019-04-09 15:50] LABS: ALBUMIN 2.4 g/dL (3.4-5.0); ALBUMIN/GLOBULIN RATIO 0.9 (1.0-1.7); CALCIUM 7.4 mg/dL (8.5-10.1); CREATININE 2.5 mg/dL (0.6-1.0); GFR 20.4; MAGNESIUM 2.9 mg/dL (1.8-2.4); POTASSIUM 4.3 mmol/L (3.5-5.1); TOTAL BILIRUBIN 0.2 mg/dL (0.2-1.0)
[2019-04-09] MEDS ORDERED: IV NORMAL SALINE 1,000ML 1,920 ML IV SCH (16:00)
[2019-04-09 16:02] LABS: % BANDS 8 % (0-9); % LYMPHS 14 % (24-48); % METAS 1 % (0-0); % MONOS 7 % (0-10); % SEGS 70 % (35-66); PLT ESTIMATE ADEQUATE (ADEQUATE)
[2019-04-09 16:03] LABS: AMPHETAMINE/METHAMPHETAMINE NEG (NEG); BARBITURATES NEG (NEG); BENZODIAZEPINES POS (NEG); CANNABINOIDS NEG (NEG); COCAINE NEG (NEG); METHADONE NEG (NEG); OPIATES POS (NEG); PHENCYCLIDINE NEG (NEG)
[2019-04-09 16:41] VITALS: BP 158/84
[2019-04-09 17:02] LABS: BGAS PH 7.11 (7.35-7.45)
--- NOTE | 2019-04-09 17:10 | RAD ---
Exam: CT abdomen and pelvis without contrast INDICATION: Post code, distended abdomen TECHNIQUE: Sequential axial images through the abdomen and pelvis obtained without IV contrast. Sagittal and coronal reformatted images were reconstructed from the axial data and reviewed. Comparisons: None FINDINGS: Heart size is normal. No pericardial effusion. Atelectatic changes noted in the lung bases. No pleural effusion. Evaluation of solid organs is limited secondary to noncontrast technique. Diffuse decreased attenuation of the liver parenchyma. Spleen, gallbladder and adrenals are unremarkable. There is fat stranding in the upper retroperitoneum at the level of the pancreas. Pancreas is otherwise unremarkable. No perinephric inflammation or hydronephrosis. No renal or ureteral calculi. Bladder is decompressed not well evaluated. Farnsworth noted within the bladder. Large and small bowel are unremarkable. No obstruction. No free intra-abdominal air or fluid. Appendix is normal. Abdominal aorta has a normal course and caliber. Right femoral vein catheter is noted. No enlarged abdominal lymph nodes are identified. No suspicious osseous lesions or acute fractures. IMPRESSION: 1. Fat stranding in the upper retroperitoneum predominantly surrounding the pancreas could relate to a degree of pancreatitis. Correlate with appropriate laboratory enzymes 2. Severe diffuse hepatic steatosis. 3. No evidence for perforation or free intra-abdominal fluid. Exposure: One or more of the following in the visualized dose reduction techniques were utilized for this examination: 1. Automated exposure control 2. Adjustment of the MA and/or KV according to patient size 3. Use of iterative of reconstructive technique Electronically signed by: Moris Richardson MD (04/09/2019 5:07 PM) [facility]
--- NOTE | 2019-04-09 17:18 | RAD ---
CT HEAD WO CONTRAST Clinical indications: Status post code. COMPARISON: None available. Technique: Noncontrast axial cross sectional scanning of the head was performed. PQRS compliance Statement One or more of the following individualized dose reduction techniques were utilized for this study: 1. Automated exposure control 2. Adjustment of the mA and/or kV according to patient size 3. Use of iterative reconstruction technique Findings: There is diffuse acute subarachnoid hyperdense hemorrhage including the sylvian fissures bilaterally and the ambient cisterns bilaterally and the tentorium and the falx and the suprasellar cistern. There is loss of the reynolds-white matter differentiation consistent with diffuse cerebral edema. The lateral ventricles are slitlike as a result. No midline shift or extra-axial fluid collection is seen. No skull fracture or pneumocephalus is seen. No opacification of the mastoid sinuses or the middle ear cavities or the paranasal sinuses is seen. The maxillary sinuses are not completely seen in this study. Impression: Diffuse cerebral edema with loss of reynolds-white matter differentiation and slitlike ventricles. This may be seen with generalized anoxia. In addition, there is diffuse subarachnoid hemorrhage. FOR INTERNAL CODING PURPOSES Critical result: Findings discussed with Dr. KIESHA BE at 04/09/2019 5:06 PM. RESULT CODE: (C) Electronically signed by: Tremaine Villeda MD (04/09/2019 5:15 PM) [facility]
--- NOTE | 2019-04-09 17:43 | EKG ---
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
[2019-04-09] MEDS ORDERED: PROPOFOL 10,000 MCG/ML (20ML) VIAL IV ONE ×2 (18:15→18:30)
== END 2019-04-09 16:55 | disposition short-term general hospital (02) ==
LOC: EDBD → ER 14:53 → MERGE 14:53 → ER 16:55
DX: I46.9 Cardiac arrest, cause unspecified (principal); F17.210 Nicotine dependence, cigarettes, uncomplicated
CPT/HCPCS: 36415; 36556; 36600; 51702; 70450; 71045; 74176; 80053; 80307; 80329; 81001; 82803; 82947; 83605; 83690; 83735; 83880; 84484; 85007; 85025; 85610; 87040; 87077; 87205; 92950; 93005; 96365; 96366; 96375; 99291; 99292; G0480; J0171; J2704; J3010; 94003; 82003; J7030